=== PATIENT | male | born 1990 | race Native Hawaiian/Other Pacific Islander ===

== ENCOUNTER 2018-07-08 22:10 | Outpatient (CLI) | payer OTHER ==
[2018-07-09] MEDS ORDERED: LITHIUM CARB300 MG PO (01:08)
[2018-07-09] MEDS ORDERED: LITHIUM CARB300 M1 PO (01:08)
[2018-07-09] MEDS ORDERED: REMERON30 MG PO (01:09)
[2018-07-09] MEDS ORDERED: VENLAFAXINE150 M1 PO (01:10)
[2018-07-09] MEDS ORDERED: ARIPIPRAZOLE5 MG PO (01:11)
[2018-07-09] MEDS ORDERED: FLUPHENAZINE5 MG PO (01:12)
[2018-07-09] MEDS ORDERED: DIPH50CA30 PO (01:12)
== END 2018-07-08 22:18 | disposition short-term general hospital (02) ==
LOC: AMB 22:10
DX: G40.89 Other seizures (principal)
CPT/HCPCS: A0425; A0427

== ENCOUNTER 2018-07-08 22:28 | Emergency (ER) | payer OTHER ==
[2018-07-08 23:21] LABS: PLATELET COUNT 276 K/uL (142-355)
[2018-07-08 23:42] LABS: POTASSIUM 3.9 mmol/L (3.6-5.2); SODIUM 120 mmol/L (136-145)
[2018-07-09] MEDS ORDERED: LITHIUM CARB300 MG PO (01:08)
[2018-07-09] MEDS ORDERED: LITHIUM CARB300 M1 PO (01:08)
[2018-07-09] MEDS ORDERED: REMERON30 MG PO (01:09)
[2018-07-09] MEDS ORDERED: VENLAFAXINE150 M1 PO (01:10)
[2018-07-09] MEDS ORDERED: ARIPIPRAZOLE5 MG PO (01:11)
[2018-07-09] MEDS ORDERED: FLUPHENAZINE5 MG PO (01:12)
[2018-07-09] MEDS ORDERED: DIPH50CA30 PO (01:12)
[2018-07-09 03:20] VITALS: BP 133/67; TEMP 98.1
== END 2018-07-09 03:20 | disposition short-term general hospital (02) ==
LOC: ED 22:28
PROVIDERS: Family Medicine
PROC: 0T9B70Z Drainage of Bladder with Drainage Device, Via Natural or Artificial Opening (ICD-10-PCS; principal; 2018-07-08)
DX: E87.1 Hypo-osmolality and hyponatremia (principal); T43.595A Adverse effect of other antipsychotics and neuroleptics, initial encounter; R56.9 Unspecified convulsions; R00.0 Tachycardia, unspecified
CPT/HCPCS: 36415; 51702; 80053; 80178; 80185; 80307; 80320; 80329; 81000; 82550; 82553; 83605; 83930; 84436; 84443; 85027; 87040; 93005; 96360; 96361; 96375; 96376; 99285; J2060

== ENCOUNTER 2018-07-09 03:25 | Outpatient (CLI) | payer OTHER ==
[~2018-07-09 03:25] MED LIST: ARIPIPRAZOLE5 MG PO; DIPH50CA30 PO; FLUPHENAZINE5 MG PO; LITHIUM CARB300 M1 PO; LITHIUM CARB300 MG PO; REMERON30 MG PO; VENLAFAXINE150 M1 PO
== END 2018-07-09 04:45 | disposition short-term general hospital (02) ==
LOC: AMB 03:25
DX: E87.1 Hypo-osmolality and hyponatremia (principal); T43.595A Adverse effect of other antipsychotics and neuroleptics, initial encounter; R56.9 Unspecified convulsions; R00.0 Tachycardia, unspecified
CPT/HCPCS: A0425; A0427